=== PATIENT | male | born 1945 | race Caucasian/White ===

== ENCOUNTER 2018-08-30 12:15 | Observation (INO) | payer MEDICARE, OTHER ==
[2018-08-30 16:27] LABS: ADD MAN DIFF? NO
[2018-08-30 16:31] LABS: BASOPHILS % 0.2 % (0.0-2.0); EOSINOPHILS # 0.3 10^3/ul (0.0-0.5); HEMATOCRIT 43.1 % (42.0-52.0); HEMOGLOBIN 14.6 g/dl (14.0-18.0); LYMPHOCYTES # 2.6 10^3/ul (0.8-2.9); LYMPHOCYTES % 29.6 % (15.0-51.0); MEAN CORPUSCULAR HEMOGLOBIN 30.7 pg (29.0-33.0); MEAN CORPUSCULAR HGB CONC 33.9 g/dl (32.0-37.0); MEAN CORPUSCULAR VOLUME 90.5 fl (82.0-101.0); MEAN PLATELET VOLUME 9.8 fl (7.4-10.4); MONOCYTE # 0.5 10^3/ul (0.3-0.9); MONOCYTES % 6.1 % (0.0-11.0); NEUTROPHIL # 5.4 10^3/ul (1.6-7.5); NEUTROPHILS % 60.5 % (39.0-77.0); PLATELET COUNT 213 10^3/UL (140-415); RED BLOOD COUNT 4.76 10^6/ul (4.70-6.10)
[2018-08-30 16:31] LABS: WHITE BLOOD COUNT 8.9 10^3/ul (4.8-10.8)
[2018-08-30 16:40] LABS: ADD UMIC YES; UR ASCORBIC ACID NEGATIVE (NEGATIVE); UR BILIRUBIN (Dip) NEGATIVE (NEGATIVE); UR BLOOD (Dip) 1+ mg/dL (NEGATIVE); UR CLARITY CLEAR (CLEAR); UR COLOR YELLOW (YELLOW); UR GLUCOSE (Dip) NEGATIVE (NEGATIVE); UR KETONES (Dip) NEGATIVE (NEGATIVE); UR LEUKOCYTE ESTERASE (Dip) NEGATIVE Leu/ul (NEGATIVE); UR MUCUS FEW /HPF (NONE SEEN); UR NITRITE (Dip) NEGATIVE (NEGATIVE); UR RBC 2 /HPF (0-5); UR SPECIFIC GRAVITY (Dip) 1.023 (1.003-1.030); UR TOTAL PROTEIN (Dip) NEGATIVE (NEGATIVE); UR UROBILINOGEN (Dip) NEGATIVE (NEGATIVE); UR WBC 1 /HPF (0-5)
[2018-08-30 16:47] LABS: HEMOGLOBIN A1C 5.5 % (0-5.9)
[2018-08-30 16:49] LABS: ANION GAP 12 (5-13); BLOOD UREA NITROGEN 15 mg/dl (7-20); CALCIUM 9.3 mg/dl (8.4-10.2); CARBON DIOXIDE 30 mmol/L (21-31); CHLORIDE 102 mmol/L (97-110); CHOL/HDL RATIO 8.7 RATIO; CHOLESTEROL 202 mg/dl (100-200); CREATININE 0.83 mg/dl (0.61-1.24); GLUCOSE 95 mg/dl (70-220); HDL CHOLESTEROL 23 mg/dl (31-75); LDL CHOLESTEROL,CALCULATED 105 mg/dl; SODIUM 144 mmol/L (135-144); TRIGLYCERIDES 371 mg/dl (0-149)
[2018-08-30 16:51] LABS: INR 0.84; PROTIME 11.6 Sec (11.9-14.9); PT RATIO 0.9
[2018-08-30 16:52] LABS: PARTIAL THROMBOPLASTIN TIME 30.9 Sec (23.0-35.0)
[2018-08-30 17:00] LABS: TROPONIN-I < 0.012 ng/ml (0.000-0.120)
[2018-08-30 17:08] LABS: AMPHETAMINE/METHAMPHETAMINE Negative (NEGATIVE); BARBITURATES Negative (NEGATIVE); BENZODIAZEPINES Negative (NEGATIVE); CANNABINOIDS Negative (NEGATIVE); COCAINE Negative (NEGATIVE); OPIATES Negative (NEGATIVE)
[2018-08-30] MEDS ORDERED: ACETAMINOPHEN 325 MG TAB PO ×2 (19:00→22:00)
[2018-08-30] MEDS ORDERED: ONDANSETRON 4 MG INJ IV ×2 (19:00→22:00)
[2018-08-30] MEDS: ASPIRIN 81 MG TAB PO (19:02)
[2018-08-30] MEDS ORDERED: ZOLPIDEM 5 MG TAB PO (22:00)
[2018-08-30] MEDS: CLONIDINE 0.1 MG/24 HR PATCH TRANSDERM (23:38)
[2018-08-30] MEDS: ENALAPRIL 2.5 MG TAB PO (23:49)
[2018-08-31] MEDS: PANTOPRAZOLE (EC) 40 MG TAB PO (06:13)
[2018-08-31 06:33] LABS: ADD MAN DIFF? NO
[2018-08-31 06:51] LABS: BASOPHILS % 0.4 % (0.0-2.0); EOSINOPHILS # 0.4 10^3/ul (0.0-0.5); EOSINOPHILS % 4.6 % (0.0-7.0); HEMATOCRIT 43.1 % (42.0-52.0); HEMOGLOBIN 14.4 g/dl (14.0-18.0); LYMPHOCYTES # 2.7 10^3/ul (0.8-2.9); LYMPHOCYTES % 36.2 % (15.0-51.0); MEAN CORPUSCULAR HEMOGLOBIN 30.1 pg (29.0-33.0); MEAN CORPUSCULAR HGB CONC 33.4 g/dl (32.0-37.0); MEAN CORPUSCULAR VOLUME 90.2 fl (82.0-101.0); MONOCYTE # 0.5 10^3/ul (0.3-0.9); MONOCYTES % 7.1 % (0.0-11.0); NEUTROPHIL # 3.9 10^3/ul (1.6-7.5); NEUTROPHILS % 51.4 % (39.0-77.0); PLATELET COUNT 204 10^3/UL (140-415); RED BLOOD COUNT 4.78 10^6/ul (4.70-6.10); RED CELL DISTRIBUTION WIDTH 12.9 % (11.5-14.5)
[2018-08-31 06:51] LABS: WHITE BLOOD COUNT 7.6 10^3/ul (4.8-10.8)
[2018-08-31 07:26] LABS: ANION GAP 14 (5-13); BLOOD UREA NITROGEN 16 mg/dl (7-20); CALCIUM 9.1 mg/dl (8.4-10.2); CARBON DIOXIDE 28 mmol/L (21-31); CHLORIDE 101 mmol/L (97-110); GLUCOSE 92 mg/dl (70-220); MAGNESIUM 1.7 mg/dl (1.7-2.5); PHOSPHORUS 4.6 mg/dl (2.5-4.9); POTASSIUM 3.9 mmol/L (3.5-5.1); SODIUM 143 mmol/L (135-144)
[2018-08-31 07:40] LABS: CHOLESTEROL 195 mg/dl (100-200)
[2018-08-31 07:40] LABS: CHOL/HDL RATIO 9.2 RATIO; HDL CHOLESTEROL 21 mg/dl (31-75); LDL CHOLESTEROL,CALCULATED 125 mg/dl; TRIGLYCERIDES 245 mg/dl (0-149)
[2018-08-31] MEDS: DICLOFENAC (EC) 25 MG TAB PO (08:58)
[2018-08-31] MEDS: ASPIRIN 81 MG TAB PO (08:58)
[2018-08-31] MEDS: ERGOCALCIFEROL 50,000 UNIT CAP PO (08:59)
[2018-08-31] MEDS: DONEPEZIL 10 MG TAB PO (08:59)
[2018-08-31] MEDS: EZETIMIBE 10 MG TAB PO (08:59)
[2018-08-31] MEDS: GEMFIBROZIL 600 MG TAB PO (08:59)
[2018-08-31] MEDS: DUTASTERIDE 0.5 MG CAP PO (08:59)
[2018-08-31] MEDS: ENALAPRIL 2.5 MG TAB PO (09:00)
[2018-08-31] MEDS: ATENOLOL 50 MG TAB PO (09:00)
[2018-08-31] MEDS: NICOTINE (7 MG/24 HR) PATCH TRANSDERM (11:04)
[2018-08-31] MEDS ORDERED: ATORVASTATIN 20 MG TAB PO (21:00)
[2018-08-31] MEDS ORDERED: TAMSULOSIN (SR) 0.4 MG CAP PO (21:00)
[2018-08-31] MEDS ORDERED: ATORVASTATIN 80 MG TAB PO (21:00)
== END 2018-08-31 18:24 | disposition home or self-care (01) ==
LOC: E/R 12:15 → TEL 18:40
DX: R20.0 Anesthesia of skin (principal); R51 Headache; M54.2 Cervicalgia; E78.5 Hyperlipidemia, unspecified; J44.9 Chronic obstructive pulmonary disease, unspecified; I10 Essential (primary) hypertension; F17.200 Nicotine dependence, unspecified, uncomplicated; I73.9 Peripheral vascular disease, unspecified; Z91.14 Patient's other noncompliance with medication regimen; M54.81 Occipital neuralgia; I44.0 Atrioventricular block, first degree; N40.0 Benign prostatic hyperplasia without lower urinary tract symptoms; R22.0 Localized swelling, mass and lump, head; M40.209 Unspecified kyphosis, site unspecified; R31.9 Hematuria, unspecified
CPT/HCPCS: 36415; 70450; 70551; 71045; 80048; 80061; 80307; 81001; 83036; 83735; 84100; 84443; 84484; 85025; 85610; 85730; 93005; 93306; 93880; 99285-25; G0378